=== PATIENT | female | born 1965 | race Caucasian/White ===

== ENCOUNTER → 2020-01-14 12:39 | Outpatient (CLI) | payer OTHER, SELFPAY ==
--- NOTE | 2020-01-14 | DI.US.S_ITS ---
PROCEDURE: US ABDOMEN LIMITED INDICATIONS: LEFT GROIN LUMP X 3 DAYS TECHNIQUE: Real-time focused scanning was performed of the inguinal region, with image documentation. COMPARISON: None. FINDINGS: No aneurysm is found, no venous thrombosis is seen. Three adjacent prominent lymph nodes are present in the area of current clinical concern, measuring up to 5.0 x 2.0 x 2.1 cm above, 1.9 x 1.9 x 2.0 cm immediately below, and 1.1 x 1.1 x 1.0 cm at the lowest margin of this palpable area. These have increased vascularity and likely are reactive in origin. IMPRESSION: Mildly prominent lymph nodes at the left groin as discussed, with increased vascularity. These likely are reactive to some form of inflammatory process but the exact etiology is uncertain. Therefore, continued clinical follow-up is recommended and if these nodes continue to produce symptomatology and enlarged surgical consultation is recommended. Dictated by: Jozef Martin M.D. on 01/14/2020 at 13:57 Approved by: Jozef Martin M.D. on 01/14/2020 at 13:58
== END ==
PROVIDERS: Family Provider Family Medicine; PCP Family Medicine; Referring Provider Physician Assistant; Visit Provider Physician Assistant
DX: R19.04 Left lower quadrant abdominal swelling, mass and lump (principal); R59.0 Localized enlarged lymph nodes
CPT/HCPCS: 76705

== ENCOUNTER → 2020-01-24 09:07 | Outpatient (CLI) | payer OTHER, SELFPAY ==
[2020-01-24 09:25] LABS: Bacteria Urine None Seen; WBC Urine None Seen (0-5/HPF)
[2020-01-24 09:55] LABS: Appearance Urine UA CLEAR; Bilirubin Urine UA NEGATIVE (NEGATIVE); Color Urine UA YELLOW; Glucose Urine UA NEGATIVE (Negative); Ketones Urine UA NEGATIVE (NEGATIVE); Leukocyte Esterase Urine UA NEGATIVE (NEGATIVE); Nitrite Urine UA NEGATIVE (Negative); Occult Blood Urine UA TRACE-INTACT (Negative); Protein Urine UA NEGATIVE (Negative); Urobilinogen Urine UA 0.2 E.U./dL (0.2)
[2020-01-24 09:57] LABS: Add Manual Diff / Slide Review NO; Basophils Absolute Auto 0 /uL (0-100); Basophils Percent Auto 0.5 % (0-2); Eosinophils Absolute Auto 100 /uL (0-450); Hematocrit 37.2 % (36-46); Hemoglobin 12.7 g/dL (12.0-16.0); Lymphocytes Absolute Auto 1500 /uL (1100-4500); Lymphocytes Percent Auto 30.9 % (25-40); Mean Corpuscular HGB Conc 34.1 % (30-36); Mean Corpuscular Volume 93.9 fL (80-100); Monocytes Absolute Auto 300 /uL (0-900); Monocytes Percent Auto 6.1 % (3-14); Neutrophils Absolute Auto 2900 /uL (1500-7000); Neutrophils Percent Auto 60.5 % (50-75); Platelet Count 269 X10^3/uL (150-400); Red Blood Cell Count 3.96 X10^6/uL (4.0-5.2); White Blood Cell Count 4.9 X10^3/uL (4.5-11.0)
[2020-01-24 10:01] LABS: Culture Indicated Urine Cult Not Indicated; RBC Urine 0-1/HPF (0-5/HPF)
[2020-01-24 10:35] LABS: Alanine Aminotransferase 17 IU/L (<35); Albumin 4.4 g/dL (3.5-5.0); Albumin Globulin Ratio 1.5 (1.0-2.8); Alkaline Phosphatase 78 U/L (38-126); Aspartate Aminotransferase 22 IU/L (14-36); BUN Creatinine Ratio 15.5 (6-22); Bilirubin Total 0.4 mg/dL (0.2-1.3); Blood Urea Nitrogen 11 mg/dL (7-17); Calcium 9.3 mg/dL (8.4-10.2); Carbon Dioxide 29 mmol/L (22-32); Chloride 100 mmol/L (98-107); Cholesterol 225 mg/dL (140-199); Estimated Glomerular Filt Rate > 60.0 mL/min (>60); Glucose 94 mg/dL (70-100); HDL Cholesterol 58 mg/dL (40-60); HEMOLYSIS < 15 (0-50); LDL Cholesterol Calculated 140 mg/dL (<100); Phosphorous 4.2 mg/dL (2.5-4.5); Potassium 4.4 mmol/L (3.4-5.1); Sodium 135 mmol/L (137-145); Total Protein 7.4 g/dL (6.3-8.2); Triglycerides 135 mg/dL (35-150)
[2020-01-24 10:36] LABS: C-Reactive Protein Quant < 0.5 mg/dL (<1.0)
[2020-01-25 13:15] LABS: Absolute CD 4 Helper 945 /uL (359-1519); Eosinophils 2 % (Not Estab.); Eosinophils (Absolute) 0.1 x10E3/uL (0.0-0.4); Hemacrit 36.3 % (34.0-46.6); Hemoglobin 12.1 g/dL (11.1-15.9); Immature Granulocytes 0 % (Not Estab.); Lymphocytes 34 % (Not Estab.); Lymphocytes (Absolute) 1.7 x10E3/uL (0.7-3.1); MCHC 30.4 pg (26.6-33.0); MCHC 33.3 g/dL (31.5-35.7); MCV 91 fL (79-97); Monocytes 6 % (Not Estab.); Monocytes (Absolute) 0.3 x10E3/uL (0.1-0.9); Neutrophils 58 % (Not Estab.); Neutrophils (Absolute) 2.9 x10E3/uL (1.4-7.0); Percent CD 4 Pos Lymph 55.6 % (30.8-58.5); Platelets 283 x10E3/uL (150-450); RDW 12.4 % (11.7-15.4); Red Blood Cells 3.98 x10E6/uL (3.77-5.28)
[2020-01-29 22:36] LABS: HIV-1 RNA by PCR <40 copies/mL (.)
== END ==
PROVIDERS: Family Provider Family Medicine; PCP Family Medicine; Referring Provider Internal Medicine; Visit Provider Internal Medicine
DX: B20 Human immunodeficiency virus [HIV] disease (principal)
CPT/HCPCS: 36415; 80053; 80061; 81001; 84100; 85025; 86140; 86361; 87536

== ENCOUNTER 2020-02-05 09:35 | Day surgery (SDC) | payer OTHER, SELFPAY ==
[2020-02-01 13:22] VITALS: BMI 26.2
--- NOTE | 2020-02-05 | PATH_ITS ---
[facility] Accession Number: [id number] . 01 Material submitted: . lymph node - LEFT GROIN NODE . 01 Clinical history: . L GROIN ADENOPATHY ANAL/RECTAL MASS . 02 Diagnosis: Left Groin Lymph Node, Excisional Biopsy: Metastatic squamous cell carcinoma. No definite extra-capsular extension identified. [facility] 02/07/20201640 Local . 02 Comment: Concurrent flow cytometry ([id number]) showed no evidence of definitive diagnostic immunophenotypic abnormality; please see that report for additional details. . As part of routine software quality assurance analyst, Dr. Bliss has reviewed this case and agrees with the diagnosis of metastatic squamous cell carcinoma. The finding of squamous cell carcinoma was reported to Dr. Mitchell via MARY Garrett by Dr. Knight on 02/07/2020 at 10:45 a.m. . 02 Electronically signed: . Vu Knight MD, PhD, Pathologist NPI- [id number] . 01 Gross description: . Received in formalin, labeled with the patient's name, MRN and left groin lymph node, is a 3.5 x 2.1 x 2.1 cm guerra-pink previously cut into lymph node. The specimen is serially sectioned to reveal a guerra-pink smooth cut surface. Studio Designer sections are submitted in cassettes A1-A4. . Also received are one air dried smear, as well as one alcohol fixed smear, which are subsiquently stained with Geimsa and Pap stains, respectively. . (SD/[id number]) /[facility] 02/07/2020 164 Local . 02 Microscopic: . An alcohix fixed Pap stained smear shows atypical squamous cells with high nuclear:cytoplasmic volume ratios and readily identifiable mititic figures. H/E stained slides show an effaced lymph node expanded by eosinophilic epithelioid cells in a nested and diffuse growth pattern. Necrosis is readily identified. The overall features are consistent with squamous cell carcinoma. In this setting the Geimsa stain is not interpreted. . 02 Pathologist provided ICD-10: C77.4 . 02 CPT . 157270, 294359 Performed at: 01 [facility] [address] [id number] MD Jakob Ho MD Phone: [phone] Performed at: [address] [id number] MD Stormy Spivey MD Phone: [phone]
--- NOTE | 2020-02-05 09:55 | PM.PREOP ---
Pre-operative Note COVID-19 COVID-19 status: Negative Interval Note History & Physical reviewed/Exam performed by Physician: Yes Changes to H&P: No
[2020-02-05 10:21] VITALS: BP 153/101; PULSE 79; RESP 16; TEMP 36.6; O2SAT 100; BMI 26.2
[2020-02-05] MEDS: CEFAZOLIN 2 GM/100 ML FROZ.PIGGY IV (11:05)
--- NOTE | 2020-02-05 11:23 | SUR.OPER ---
Supine on padded OR bed, head on pillow, arms secured on padded arm boards at <90 degrees abduction, legs uncrossed, left leg slightly frog legged secured with tape over blanket, tape over blanket over right lower leg.
[2020-02-05] MEDS: BUPIVACAINE 0.25% (PF) VIAL 30 ML INJ (11:50)
[2020-02-05 12:00] VITALS: BP 117/79; PULSE 72; RESP 12; TEMP 37.3; O2SAT 93
[2020-02-05 12:05] VITALS: BP 124/83; PULSE 68; RESP 12; O2SAT 96
--- NOTE | 2020-02-05 12:05 | P.OP_ITS ---
Operative Date/Time/Diagnoses Date of procedure: 02/05/20 Time of procedure: 12:05 Pre-op diagnosis: Left groin lymphadenopathy Post-op diagnosis: same Procedure & Clinicians Procedure: Excisional lymph node biopsy left groin Same procedure as scheduled: Yes Indications: 54-year-old woman presented with progressive lymphadenopathy left groin was referred for a excisional biopsy. This past weekend she underwent a colonoscopy which according her demonstrated a friable anal rectal mass. Surgeon: Lele Mitchell Anesthesia Type: General Operative Notes Findings: Significant left groin lymphadenopathy. Specimen(s): other (Left groin lymph node) Estimated Blood Loss (mL): 10 Procedure in detail: Patient was brought to the operating room placed supine on the table. Bilateral lower extremity compression devices were applied. General anesthesia was induced and she was intubated with an LMA. She has prepped and draped in sterile fashion. Time-out was performed. She was position frog- legged. Marked the inguinal ligament. The point of maximal lymphadenopathy was approximately 2 cm above the inguinal ligament. The skin was infiltrated with 0.25% bupivicaine. The skin was incised the subcutaneous tissues divided with electrocautery. Just deep to the subcutaneous tissue there was an approximately 4 cm lymph node. It was dissected out circumferentially using the ligature device. It was passed off the field as specimen. hemostasis was checked the wound irrigated. The subcutaneous tissue was reapproximated with Vicryl skin with monocyl in running fashion followed by dermabond. Complications: none Post-operative Condition: stable Disposition: same day surgery
[2020-02-05 12:11] VITALS: BP 123/80; PULSE 64; RESP 10; O2SAT 96
[2020-02-05 12:15] VITALS: BP 140/80; PULSE 66; RESP 12; O2SAT 98
[2020-02-05] MEDS: ACETAMINOPHEN 325 MG TABLET 650 MG PO (13:03)
[2020-02-05 13:12] VITALS: BP 140/79; PULSE 63; RESP 16; TEMP 36.6; O2SAT 96
== END 2020-02-05 13:15 | disposition home or self-care (01) ==
PROVIDERS: Family Provider Family Medicine; PCP Family Medicine; Referring Provider Surgery; Visit Provider Surgery
PROC: (CPT 38531; principal; 2020-02-05 10:45)
DX: C77.4 Secondary and unspecified malignant neoplasm of inguinal and lower limb lymph nodes (principal); C80.1 Malignant (primary) neoplasm, unspecified; K62.5 Hemorrhage of anus and rectum; K62.9 Disease of anus and rectum, unspecified; Z21 Asymptomatic human immunodeficiency virus [HIV] infection status
CPT/HCPCS: 38531; J0690; J2704; J3010